=== PATIENT | female | born 2000 | race Caucasian/White ===

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

== ENCOUNTER 2021-02-15 19:51 | Emergency (ER) | payer SELFPAY ==
[~2021-02-15] VITALS: Ht 165.1 cm; Wt 65.9 kg
[2021-02-15 19:56] VITALS: BP 137/93; TEMP 98.4
[2021-02-15] MEDS ORDERED: AMOXICILLIN 8751 TAB PO (20:40)
[2021-02-15 21:23] VITALS: PULSE 88
== END 2021-02-15 21:25 | disposition home or self-care (01) ==
LOC: COL.ER 19:51
DX: S61.233A Puncture wound without foreign body of left middle finger without damage to nail, initial encounter (principal); W54.0XXA Bitten by dog, initial encounter